=== PATIENT | male | born 1950 | race Hispanic/Latino ===

== ENCOUNTER → 2019-02-03 | Outpatient (CLI) | payer OTHER ==
[2019-02-03 10:07] LABS: EOSINOPHILS % (AUTO) 4.5 % (0.0-8.0); HEMATOCRIT 40.6 % (42-54); LYMPHOCYTES % (AUTO) 32.5 % (21.0-51.0); MEAN CORPUSCULAR HEMOGLOBIN 29.9 pg (27.0-33.0); MEAN CORPUSCULAR VOLUME 87.9 fL (79-99); MONOCYTES % (AUTO) 9.2 % (3.0-13.0); NEUTROPHILS % (AUTO) 52.8 % (40.0-77.0); PLATELET COUNT (AUTO) 256 K/uL (130-400); RED BLOOD CELL COUNT(AUTO) 4.62 MIL/uL (4.50-6.20); RED CELL DISTRIBUTION WIDTH 14.5 % (11.0-15.5)
[2019-02-03 10:14] LABS: CREATININE 0.8 mg/dL (0.5-1.5); POTASSIUM 4.5 mmol/L (3.5-5.1)
== END | disposition home or self-care (01) ==
LOC: LAB 10:00
PROVIDERS: ATTEND Urology
DX: R31.0 Gross hematuria (principal); N43.3 Hydrocele, unspecified
CPT/HCPCS: 36415; 80048; 85025

== ENCOUNTER → 2019-02-05 | Outpatient (CLI) | payer OTHER ==
[~2019-02-05] MED LIST: IOHEXOL-350 75 ML VIAL IV ONE
== END | disposition home or self-care (01) ==
LOC: RAH 07:38
PROVIDERS: ATTEND Urology
DX: K40.20 Bilateral inguinal hernia, without obstruction or gangrene, not specified as recurrent (principal); N28.1 Cyst of kidney, acquired; K57.90 Diverticulosis of intestine, part unspecified, without perforation or abscess without bleeding
CPT/HCPCS: 74178; 76870; Q9967

== ENCOUNTER → 2020-03-01 | Outpatient (CLI) | payer OTHER | END | disposition home or self-care (01) | LOC: OIH 09:35 | PROVIDERS: ATTEND Internal Medicine | DX: M19.022 Primary osteoarthritis, left elbow (principal); M79.603 Pain in arm, unspecified; M79.622 Pain in left upper arm | CPT/HCPCS: 73030; 73060; 73070; 73090 ==

== ENCOUNTER 2021-11-10 12:49 | Emergency (ER) | payer OTHER ==
[~2021-11-10] VITALS: Ht 180.3 cm; Wt 95.3 kg
[2021-11-10 13:47] LABS: BASOPHILS % (AUTO) 0.3 % (0.0-5.0); EOSINOPHILS % (AUTO) 1.6 % (0.0-8.0); HEMATOCRIT 41.8 % (42-54); LYMPHOCYTES % (AUTO) 17.6 % (21.0-51.0); MEAN CORPUSCULAR HEMOGLOBIN 28.6 pg (27.0-33.0); MEAN CORPUSCULAR VOLUME 86.7 fL (79-99); MONOCYTES % (AUTO) 9.6 % (3.0-13.0); NEUTROPHILS % (AUTO) 70.6 % (40.0-77.0); PLATELET COUNT (AUTO) 271 K/uL (130-400); RED BLOOD CELL COUNT(AUTO) 4.82 MIL/uL (4.50-6.20); RED CELL DISTRIBUTION WIDTH 14.9 % (11.0-15.5); WHITE BLOOD COUNT (AUTO) 11.6 K/uL (4.8-10.8)
[2021-11-10 13:58] LABS: CREATININE 0.8 mg/dL (0.5-1.5); POTASSIUM 3.5 mmol/L (3.5-5.1)
[2021-11-10] MEDS ORDERED: MAG/ALUM/SIMETH 30 ML UDCUP PO ONE (14:00)
[2021-11-10] MEDS ORDERED: DICYCLOMINE HCL 10 MG/5 ML ML PO ONE (14:00)
[2021-11-10] MEDS ORDERED: ONDANSETRON 4MG INJ IVP ONE (14:00)
[2021-11-10] MEDS ORDERED: LIDOCAINE HCL 2% VISCOUS 15 ML UDCUP PO ONE (14:00)
[2021-11-10 14:03] LABS: ALBUMIN 3.6 g/dL (3.5-5.0); BILIRUBIN,TOTAL 1.1 mg/dL (0.2-1.0); TOTAL PROTEIN, SERUM 7.6 g/dL (6.0-8.3)
[2021-11-10 14:36] LABS: APPEARANCE,URINE CLEAR (CLEAR); BILIRUBIN,URINE NEGATIVE (NEGATIVE); COLOR,URINE YELLOW (YELLOW); GLUCOSE, URINE (UA) NEGATIVE (NEGATIVE); KETONES,URINE NEGATIVE (NEGATIVE); LEUKOCYTE ESTERASE ,URINE NEGATIVE (NEGATIVE); NITRATE,URINE NEGATIVE (NEGATIVE); OCCULT BLOOD,URINE NEGATIVE (NEGATIVE); PROTEIN,URINE TRACE mg/dL (NEGATIVE)
[2021-11-10 14:46] LABS: BACTERIA,URINE Rare /HPF (None Seen); MUCUS,URINE Few LPF (None Seen); SQUAMOUS EPITHELIAL CELL,UR 0-2 /HPF (0-2); WBC,URINE 0-1 /HPF (0-1)
[2021-11-10] MEDS ORDERED: MAG-55 PO (16:18)
[2021-11-10 16:24] VITALS: BP 148/76
== END 2021-11-10 16:37 | disposition home or self-care (01) ==
LOC: EDH 12:49
DX: R07.89 Other chest pain (principal); K30 Functional dyspepsia; R11.2 Nausea with vomiting, unspecified; I10 Essential (primary) hypertension
CPT/HCPCS: 36415; 71045; 76705; 80053; 81001; 82150; 84484; 85025; 93005 ×2; 96374; 99285; J2405

== ENCOUNTER → 2023-07-30 | Outpatient (CLI) | payer OTHER ==
[~2023-07-30] MED LIST changes: -IOHEXOL-350 75 ML VIAL IV ONE; +MAG-55 PO
== END | disposition home or self-care (01) ==
LOC: OIH 14:48
PROVIDERS: ATTEND Internal Medicine
DX: M23.91 Unspecified internal derangement of right knee (principal)
CPT/HCPCS: 73560

== ENCOUNTER → 2024-03-17 | Outpatient (CLI) | payer OTHER ==
--- NOTE | 2024-03-17 12:44 | HMCIMG ---
KNEE 3VWS LT REASON: LEFT KNEE PAIN TECHNIQUE: 3 views were obtained. FINDINGS: There is no evidence of fracture or dislocation. There is no joint effusion. The soft tissues appear unremarkable. There is no evidence of a radiopaque foreign body. IMPRESSION: No acute findings.
== END | disposition home or self-care (01) ==
LOC: OIH 09:34
PROVIDERS: ATTEND Internal Medicine
DX: M25.562 Pain in left knee (principal)
CPT/HCPCS: 73562

== ENCOUNTER → 2024-07-16 | Outpatient (CLI) | payer OTHER ==
[~2024-07-16] MED LIST changes: +HYDR-4060 PO
--- NOTE | 2024-07-16 16:27 | HMCIMG ---
Exam Type: CHEST 2VWS Clinical Information: ATHEROSCLEROSIS OF AORTA Comparison: None Findings: The lungs are clear of infiltrates. The heart is normal in size. The bony and soft tissue structures of the chest are unremarkable. Impression: Clear lungs.
== END | disposition home or self-care (01) ==
LOC: RAH 15:28
PROVIDERS: ATTEND Internal Medicine
DX: I70.0 Atherosclerosis of aorta (principal); R06.02 Shortness of breath
CPT/HCPCS: 71046

== ENCOUNTER 2024-07-17 15:06 | Emergency (ER) | payer OTHER ==
[~2024-07-17] VITALS: Ht 180.3 cm; Wt 104.3 kg
[~2024-07-17 15:06] MED LIST changes: -HYDR-4060 PO
[2024-07-17] MEDS: HYDROcodone/APAP 5/325 1 TAB TABLET PO ONE (16:26)
[2024-07-17] MEDS: ibuPROFEN 600 MG TABLET PO ONE (16:26)
[2024-07-17] MEDS ORDERED: HYDR-4060 PO (16:33)
--- NOTE | 2024-07-17 16:37 | ERN ---
General Chief Complaint: Elbow Problem Stated Complaint: FALL, ARM INJURY Time Seen by MD: 15:08 History of Present Illness Initial Comments 74-year-old male who presents for a mechanical fall. Ground level fall onto his left shoulder. He was some left chest wall pain left shoulder pain. He does have some swelling of the left elbow. Neurovascularly intact. Does not hit his head. No blood thinners. No loss of consciousness. No neck pain or stiffness. No other concerns. He was otherwise in his normal state of health. Allergies: Coded Allergies: No Known Allergies (Unverified Allergy, Unknown, 11/10/21) Uncoded Allergies: OTC PAIN MEDICTIONS (Allergy, Unknown, 11/10/21) Home Meds Active Scripts Mag Hydrox/Al Hydrox/Simeth (Maalox Maximum Strength Susp) 355 Ml Oral.susp, 10 ML PO QID, #150 ML Prov:APOORVA COLÓN MD 11/10/21 Past Medical History Past Medical History: Arthritis, Hypertension Past Surgical History: Other Social History Social History: ETOH ROS Dictation CONSTITUTIONAL: No chills, no fever, no weakness, no diaphoresis, no malaise. HEAD/FACE: No signs of trauma. EENT: No eye pain, no blurred vision, no tearing, no double vision, no ear pain, no ear discharge, no nose pain, no nasal congestion, no throat pain, no throat swelling, no mouth pain. RESPIRATORY: No cough, no orthopnea, no SOB, no stridor, no wheezing. CARDIOVASCULAR: No chest pain, no edema, no palpitations, no syncope. GASTROINTESTINAL/ABDOMINAL: No abdominal pain, no constipation, no diarrhea, no nausea, no vomiting. GENITOURINARY: No abnormal discharge, no dysuria, no frequent urination, no hematuria. No complaints of pain in the genitals. MUSCULOSKELETAL: Chest wall pain left elbow pain INTEGUMENTARY: No change in color, no change in hair/nails, no dryness, no lesion, no lumps, no rash. NEUROLOGICAL/PSYCH: No anxiety, not depressed, no emotional problem, no headache, no numbness, no pre-existing deficit, no history of seizures, no tremors, no weakness. HEMATOLOGIC/LYMPHATIC: Not anemic, no history of blood clots, no apparent bleeding, no bruising, glands not swollen. All Systems Negative, Except as Noted. Physical Exam Physical Exam Dictation VITAL SIGNS: Reviewed. GENERAL APPEARANCE: Alert, oriented x3, no acute distress. HEAD AND FACE: Non-traumatic. EYES: PERRL, pink conjunctivas, eyelid no trauma, anterior chamber clear. EARS: Pinnas intact and no signs of trauma or erythema. Ear canals clear and no discharge. TMs no erythema. NOSE: No discharge, no bleeding. OROPHARYNX: Mouth normal, teeth no caries, tongue pink. Pharynx clear, no erythema. Tonsils no exudates, no abscesses noted. Mucous membrane moist. NECK: Supple, non-tender, no thyromegaly, no masses, no JVD, no bruits. BREAST: Deferred. CHEST: No tenderness, no crepitus, no paradoxical movement, no retractions. LUNGS: Clear, well-ventilated, symmetric, no rales, no wheezing, no rhonchi, no stridor, good breath sounds bilaterally. HEART: Regular rate, regular rhythm, no murmur, no gallops. VASCULAR: No peripheral edema. ABDOMEN: Soft, positive bowel sounds, nondistended, no guarding, nontender, no rebound, no masses no hepatomegaly, no splenomegaly, no Rodney's sign, no hernias. RECTAL: Deferred. GENITAL: Deferred. NEUROLOGICAL: Normal speech, gross motor function intact, gross sensory function intact. MUSCULOSKELETAL: Neck nontender, full range of motion, back nontender, full range of motion. Left elbow swelling EXTREMITIES: Nontender, full range of motion. SKIN: Color pink, dry, no turgor, no rash, no lacerations, no abrasions, no contusions. LYMPHATICS: Deferred. MDM CC: Left elbow pain, chest wall pain Historian: Patient Comorbidities: ypertension, high cholesterol Limitations by social determinants of health: None Differential diagnosis: Soft tissue injury versus fracture, rib fracture, pneum othorax Vital signs stable Chest x-ray (independently interpreted by me with rib series): No acute obvious fractures or abnormalities. No pneumothorax Left elbow x-ray (independently interpreted by me): No acute fractures. Severe arthritis. Treatment in ED: 600 mg ibuprofen, Houghton tab Plan: We will discharge with supportive care, Houghton prescription, PCP follow up. ED Course Orders Procedure Category Date Status Time Elbow Comp 3+Vws Lt RAD 3/15/25 Taken 15:22 Ribs Uni Lt W Pa RAD 07/17/24 Taken Chest 3+Vws 15:22 Ibuprofen 600 Mg PHA 07/17/24 In Process Tablet (Motrin) 16:30 Hydrocodone/Apap PHA 07/17/24 In Process 5/325 (Houghton 5/325mg) 16:30 Apply Ice Pack To: CPOE 07/17/24 Transmitted (Er) 16:17 Current Medications Medications (Trade) Dose Ordered Sig/Solis Route PRN Reason Start Time Stop Time Status Last Admin Dose Admin Acetaminophen/ Hydrocodone Bitart (NORco 5/325MG) 1 tab ONCE ONCE PO 07/17/24 16:30 07/17/24 16:31 Ibuprofen (moTRIN) 600 mg ONCE ONCE PO 07/17/24 16:30 07/17/24 16:31 Vital Signs Date Time Temp Pulse Resp B/P (MAP) Pulse Ox O2 Delivery O2 Flow Rate FiO2 07/17/24 15:55 98.4 62 20 147/88 98 Room Air* 0 21 07/17/24 15:16 98.1 68 18 156/90 96 DX & DISP Disposition: Discharge Departure Impression: Primary Impression: Effusion, left elbow Additional Impression: Chest wall pain Condition: Stable Scripts Hydrocodone/Acetaminophen (Hydrocodon-Acetaminophen 5-325) 5 Mg-325 Mg Tablet 1-2 TAB PO TIDP PRN for pain for 5 Days, #20 TAB 0 Refills Prov: KAYLA MICHELE DO 07/17/24 Additional Instructions: There are no obvious fractures on your x-rays. The left elbow x-ray shows significant arthritis, but no acute fractures. The chest and rib x-rays do not show any obvious fractures. As we discussed, there may be a subtle nondisplaced fracture in your chest wall. For the elbow, I recommend icing for at least 20 minutes 3 times a day for the next few days. Use the sling as needed. Be sure to elevate the elbow as much as possible to reduce the swelling. You can also use a Homar wrap bandage. Further chest wall pain, I recommend lidocaine patches or Salonpas patches. I recommend Voltaren gel. Be sure to continue taking deep breaths and respirations, because you are at risk for pneumonia and lung complications in the near future due to the pain. For pain, you can continue taking the diclofenac that you have already been prescribed. I have also prescribed Houghton (hydrocodone-acetaminophen) tabs to use as needed for significant pain. Please follow up with your primary doctor next week if you continue with symptoms. Return to the emergency department as needed. Referrals: PEGGY BISWAS MD (PCP) KAYLA MICHELE DO Jul 17, 2024 16:37
[2024-07-17 16:43] VITALS: BP 141/81; PULSE 64; RESP 18; TEMP 98.1; O2SAT 98
--- NOTE | 2024-07-17 17:11 | HMCIMG ---
RIBS UNI LT W PA CHEST 3+VWS CLINICAL HISTORY: LEFT LATERAL RIB PAIN STATUS POST SAME LEVEL FALL COMPARISON: December 27 TECHNIQUE: 5 images were obtained. FINDINGS: Lungs are mildly hypoventilated. The cardiac size is at the upper limits of normal to mildly enlarged stable. The bony structures appear intact with no identified fractures and there is no identified pneumothorax. IMPRESSION: There is no identified acute trauma.
--- NOTE | 2024-07-17 17:13 | HMCIMG ---
ELBOW COMP 3+VWS LT CLINICAL HISTORY: LEFT ELBOW PAIN SWELLING STATUS POST FALL COMPARISON: None TECHNIQUE: AP and lateral images were obtained. FINDINGS: There is no identified acute fracture fixation discussion. Note is made of joint space loss with bony remodeling of the distal humerus as well as the ulna and radius may represent prior trauma. Additionally demonstrated is extensive soft tissue edema. IMPRESSION: Extensive soft tissue edema with no identified acute bony trauma
== END 2024-07-17 16:58 | disposition home or self-care (01) ==
LOC: EDH 15:06
DX: M25.422 Effusion, left elbow (principal); R07.89 Other chest pain; M19.90 Unspecified osteoarthritis, unspecified site; E78.00 Pure hypercholesterolemia, unspecified; I10 Essential (primary) hypertension
CPT/HCPCS: 71101; 73080; 99284

== ENCOUNTER → 2024-07-27 | Outpatient (CLI) | payer OTHER ==
[~2024-07-27] MED LIST changes: +HYDR-4060 PO
--- NOTE | 2024-07-27 15:49 | HMCIMG ---
FOREARM 2VWS LT HISTORY: Forearm contusion COMPARISON: None TECHNIQUE: 3 images of left forearm were obtained. FINDINGS: There is no acute displaced fracture or dislocation. Joint space narrowing is seen. Degenerative changes are seen. IMPRESSION: 1. Findings as described above.
== END | disposition home or self-care (01) ==
LOC: RAH 13:22
PROVIDERS: ATTEND Internal Medicine
DX: S50.12XA Contusion of left forearm, initial encounter (principal); M19.042 Primary osteoarthritis, left hand; X58.XXXA Exposure to other specified factors, initial encounter; Y93.89 Activity, other specified; Y92.89 Other specified places as the place of occurrence of the external cause; Y99.8 Other external cause status
CPT/HCPCS: 73090